=== PATIENT | male | born 1985 | race Caucasian/White ===

== ENCOUNTER 2017-03-14 15:32 | Emergency (ER) | payer OTHER ==
[~2017-03-14] VITALS: Ht 172.7 cm; Wt 93.2 kg
[~2017-03-14 15:32] MED LIST: CIPRO500 MG PO; FLOMAX0.4 MG PO; NAPROSYN500 MG PO; NOHOMEMEDS; PERCOCET 5/31 TABLET PO; ZOFRAN4 MG PO
[2017-03-14] MEDS ORDERED: KEFLEX500 MG PO (17:53)
[2017-03-14] MEDS ORDERED: MOTRIN800 MG PO (17:53)
[2017-03-14] MEDS ORDERED: BACTRIM,SEPT1 TABLET PO (17:53)
[2017-03-14 18:23] VITALS: BP 133/96
== END 2017-03-14 18:24 | disposition home or self-care (01) ==
LOC: EXP 15:32 → EME 15:32 → EXP 18:24
DX: L05.01 Pilonidal cyst with abscess (principal)
CPT/HCPCS: 99281; 99283